=== PATIENT | male | born 1960 | race Caucasian/White ===

== ENCOUNTER 2016-12-02 11:08 | Emergency (ER) | payer OTHER ==
[2016-12-02] MEDS ORDERED: Ondansetron 4 MG/2 ML SDV IM ONE (11:42)
[2016-12-02] MEDS ORDERED: HYDROmorphone 1 MG/ML Syringe IM ONE (11:42)
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
[2016-12-02 16:37] VITALS: BP 125/67
== END 2016-12-02 14:35 | disposition home or self-care (01) ==
LOC: VM.ED 11:08
DX: M54.5 Low back pain (principal); E78.00 Pure hypercholesterolemia, unspecified; I10 Essential (primary) hypertension; F32.9 Major depressive disorder, single episode, unspecified; E11.9 Type 2 diabetes mellitus without complications; Z88.8 Allergy status to other drugs, medicaments and biological substances; Z79.899 Other long term (current) drug therapy
CPT/HCPCS: 72131; 96372; 99283; J1170; J2405